=== PATIENT | female | born 1950 | race Caucasian/White ===

== ENCOUNTER 2016-06-19 19:32 | Inpatient (IN) | payer MEDICARE ==
[~2016-06-19] VITALS: Ht 175.3 cm; Wt 67.1 kg
[2016-06-19] MEDS ORDERED: QUET50TA PO (19:50)
[2016-06-19 19:54] LABS: *BILIRUBIN,URIN NEGATIVE (NEGATIVE); *BLOOD, URINE Trace-lysed (NEGATIVE); *CLARITY,URINE CLOUDY (CLEAR); *COLOR,URINE YELLOW (YELLOW); *KETONES,URINE NEGATIVE (NEGATIVE); *PROTEIN,URINE NEGATIVE (NEGATIVE); *UROBILINOGEN,URINE 0.2 E.U./dl (NORMAL); LEUKOCYTE ESTERASE ,URINE 1+ (NEGATIVE); NITRITE, URINE NEGATIVE (NEGATIVE); PH,URINE 6.5 (5.0-8.0); UGLUCOSE NEGATIVE (NEGATIVE)
[2016-06-19] MEDS ORDERED: OLANZAPINE 5 MG TABLET PO ONE (20:00)
[2016-06-19 20:08] LABS: *AMPHETAMINE, URINE NEGATIVE (NEGATIVE); *BARBITURATE, URINE NEGATIVE (NEGATIVE); *CANNABINOID, URINE NEGATIVE (NEGATIVE); *COCCAINE, URINE NEGATIVE (NEGATIVE); *OPIATE, URINE NEGATIVE (NEGATIVE); *PHENCYCLIDINE SCREEN,URINE NEGATIVE (NEGATIVE)
[2016-06-19 20:09] LABS: BASOPHILS % (AUTO) 0.3 % (0.0-2.0); EOSINOPHILS # (AUTO) 0.8 K/uL (0.0-0.7); EOSINOPHILS % (AUTO) 10.3 % (0.0-7.0); HEMATOCRIT 40.4 % (31.2-41.9); HEMOGLOBIN 13.6 g/dL (10.9-14.3); LYMPHOCYTES # (AUTO) 1.4 K/uL (20.0-40.0); MEAN CORPUSCULAR HEMOGLOBIN 30.1 uug (24.7-32.8); MEAN CORPUSCULAR HGB CONC 34 g/dL (32.3-35.6); MEAN CORPUSCULAR VOLUME 89.5 fL (75.5-95.3); MONOCYTES # (AUTO) 0.7 K/uL (2.0-10.0); NEUTROPHILS # (AUTO) 4.5 K/uL (1.8-8.9); NEUTROPHILS % (AUTO) 61.4 % (38.5-71.5); PLATELET COUNT (AUTO) 185 K/uL (179-408); RED BLOOD CELL COUNT(AUTO) 4.52 MIL/uL (3.63-4.92); RED CELL DISTRIBUTION WIDTH 13.1 % (12.3-17.7); WHITE BLOOD COUNT (AUTO) 7.4 K/uL (3.8-11.8)
[2016-06-19] MEDS ORDERED: OLANZAPINE 5 MG TABLET ONE (20:09)
[2016-06-19 20:12] LABS: ALANINE AMINOTRANSFERASE 43 U/L (14-59); ALBUMIN 3.5 g/dL (3.4-5.0); ALKALINE PHOSPHATASE 35 U/L (50-136); ASPARTATE AMINOTRANSFERASE 27 U/L (15-37); BILIRUBIN,DIRECT < 0.1 mg/dL (0.0-0.2); BILIRUBIN,TOTAL 0.2 mg/dL (0.2-1.0); CARBON DIOXIDE 30 mmol/L (21-32); CHLORIDE 110 mmol/L (98-107); CREATININE 0.9 mg/dL (0.6-1.3); GFR 62 mL/min (>60); GLUCOSE 122 mg/dL (74-106); SODIUM SERUM 147 mmol/L (136-145); TOTAL PROTEIN, SERUM 6.7 g/dL (6.4-8.2); UREA NITROGEN, BLOOD 23 mg/dL (7-18)
[2016-06-19 20:15] LABS: ETHANOL < 3 MG/DL (0-0)
[2016-06-19 20:17] LABS: ACETAMINOPHEN < 2.0 ug/mL (10-30)
[2016-06-19 20:20] LABS: BACTERIA,URINE MANY /HPF (NONE SEEN); MUCUS,URINE MANY /LPF (0-FEW); SQUAMOUS EPITHELIAL CELL,UR MODERATE /HPF (NONE SEEN); WBC,URINE 20-50 /HPF (0-3)
[2016-06-19 20:37] LABS: THYROID STIMULATING HORMONE 1.841 mIU/mL (0.358-3.740)
--- NOTE | 2016-06-19 20:49 | NUR ---
Pt. admitted to [facility], under care of Dr. Frazier Belongs List completed
[2016-06-19] MEDS ORDERED: MAG HYDROX/AL HYDROX/SIMETH 30 ML LIQUID UDC PO PRN (21:00)
[2016-06-19] MEDS ORDERED: ACETAMINOPHEN 325 MG TABLET PO PRN (21:00)
[2016-06-19] MEDS ORDERED: MAGNESIUM HYDROXIDE 30 ML LIQUID UDC PO PRN (21:00)
[2016-06-19] MEDS: TEMAZEPAM 7.5 MG CAPSULE PO PRN (21:51)
--- NOTE | 2016-06-19 23:00 | NUR ---
PATIENT RECEIVED VIA GURNEY FROM ER, PATIENT ALERT/ORIENTED X1 TO NAME ONLY. PATIENT CONFUSED, FORGETFUL, DISORGANIZED, AND DISHEVELED, PATIENT UNABLE TO FOLLOW SIMPLE COMMANDS, UNABLE TO ANSWER BASIC QUESTIONS ON HEALTH/ OR LIVING SITUATION. PATIENT AMBULATORY, CONTINENT OF BOWEL AND BLADDER. PATIENT REQUIRES FREQUENT REDIRECTION AND PROMPTING. PATIENT'S SKIN WITH RASH ON LEFT AND RIGHT ARM, UPPER CHEST, UPPER AND LOWER BACK, LEFT AND RIGHT INNER THIGH, PATIENT HAS POSSIBLE BED BUGS/SCABIES RECEIVED 1 APPLICATION OF PERMETHORIN CREAM ON 06/18/16 @ 1650. POOR INSIGHT, POOR JUDGEMENT, AND POOR IMPULSE CONTROL. PATIENT REQUIRES FREQUENT REMINDER OF ISOLATION PRECAUTIONS. PATIENT ORIENTED TO ROOM AND BATHROOM, REQUIRES FREQUENT REDIRECTION DUE TO CONFUSION AND FORGETFUL. PATIENT RECEIVED ADVISEMENT AND PATIENT HANDBOOK.
[2016-06-20 08:01] VITALS: BP 139/68
[2016-06-20] MEDS ORDERED: PERMETHRIN 5% CREAM 60 GM TUBE TP ONE ×2 (11:30→21:00)
--- NOTE | 2016-06-20 12:27 | NUR ---
Initial discharge instructions:Per chart the patient was evicted 3 weeks ago from her prior residence,and is homeless.Per pt,she has no family to contact.Spoke with pt about shelter facility placement,and she denied placement.SW will speak with pt and MD regarding appropriate discharge plans.SW will form a safe and proper discharge.
[2016-06-20] MEDS: LORAZEPAM 0.5 MG TABLET PO PRN ×2 (12:46→18:16)
[2016-06-20 15:13] VITALS: BP 127/80
[2016-06-20 20:00] VITALS: BP 141/81
[2016-06-20] MEDS ORDERED: SULFAMETH/TRIMETH 800/160 MG TABLET PO SCH (21:00)
[2016-06-20] MEDS: SULFAMETH/TRIMETH 800/160 MG TABLET PO SCH (21:14)
[2016-06-20] MEDS: diphenhydrAMINE 25 MG CAP PO PRN (21:14)
--- NOTE | 2016-06-20 22:19 | NUR ---
PATIENT REMAINS WITH A 1:1 SITTER FOR SAFETY, ON ISOLATION PRECAUTIONS DUE TO POSSIBLE BED BUGS/SCABIES. PATIENT ALERT/ORIENTED X1 TO NAME ONLY. PATIENT CONFUSED, DISORGANIZED THOUGHTS. PATIENT COMPLAINT WITH HS MEDICATION, ON ATB THERAPY FOR UTI. PATIENT HAD ELIMITE TREATMENT THIS HS, PATIENT COMPLAINT. WILL REDIRECT AND PROMPT NEEDED. BED IN LOWEST POSITION, BED LOCKED AND BED ALARM ON WHILE IN BED. NO AGGRESSIVE OR COMBATIVE BEHAVIOR NOTED.
[2016-06-21 08:00] VITALS: BP 135/68
[2016-06-21] MEDS: SULFAMETH/TRIMETH 800/160 MG TABLET PO SCH ×2 (08:20→20:16)
[2016-06-21 08:24] LABS: CALCIUM 8.4 mg/dL (8.5-10.1); CREATININE 0.7 mg/dL (0.6-1.3); POTASSIUM 4.1 mmol/L (3.5-5.1)
[2016-06-21 16:00] VITALS: BP 134/72
[2016-06-21] MEDS ORDERED: OLANZAPINE ZYDIS 5 MG TAB.RAPDIS PO SCH (19:00)
[2016-06-21] MEDS: OLANZAPINE ZYDIS 5 MG TAB.RAPDIS PO SCH (20:16)
[2016-06-21 20:19] VITALS: BP 146/86
[2016-06-21] MEDS: TEMAZEPAM 7.5 MG CAPSULE PO PRN (22:30)
[2016-06-22 08:00] VITALS: BP 141/78
[2016-06-22] MEDS: OLANZAPINE ZYDIS 5 MG TAB.RAPDIS PO SCH ×3 (09:07→20:14)
[2016-06-22] MEDS: SULFAMETH/TRIMETH 800/160 MG TABLET PO SCH ×2 (09:07→20:15)
[2016-06-22] MEDS: LORAZEPAM 0.5 MG TABLET PO PRN ×2 (15:11→22:35)
[2016-06-22 16:20] VITALS: BP 142/83
[2016-06-22] MEDS: diphenhydrAMINE 25 MG CAP PO PRN (20:14)
[2016-06-22 20:36] VITALS: BP 138/80
[2016-06-22] MEDS: TEMAZEPAM 7.5 MG CAPSULE PO PRN (21:26)
[2016-06-23 07:30] VITALS: BP 123/76
[2016-06-23] MEDS: OLANZAPINE ZYDIS 5 MG TAB.RAPDIS PO SCH ×3 (08:43→20:52)
[2016-06-23] MEDS: SULFAMETH/TRIMETH 800/160 MG TABLET PO SCH ×2 (08:43→20:51)
[2016-06-23 15:31] VITALS: BP 121/66
[2016-06-23 20:15] VITALS: BP 134/72
--- NOTE | 2016-06-23 22:00 | NUR ---
received to care, sitting in her room. pleasant upon approach. continues to be confused, and disorganized. remains on contact isolation for possible scabies. 1;1 sitter remains at her side, to ensure safety. compliant with medications and staff direction. as of 2199, she appears to be asleep. no distress noted. will continue to monitor closely.
[2016-06-24] MEDS: TEMAZEPAM 7.5 MG CAPSULE PO PRN ×2 (01:09→23:43)
--- NOTE | 2016-06-24 01:09 | NUR ---
pt is now awake. PRN restoril was given, at this time.
--- NOTE | 2016-06-24 01:30 | NUR ---
appears to be asleep. no distress noted.
--- NOTE | 2016-06-24 06:00 | NUR ---
slept 3.75 hours.
[2016-06-24 07:30] VITALS: BP 125/75
[2016-06-24] MEDS: OLANZAPINE ZYDIS 5 MG TAB.RAPDIS PO SCH ×3 (08:28→20:09)
[2016-06-24] MEDS: SULFAMETH/TRIMETH 800/160 MG TABLET PO SCH ×2 (08:28→20:09)
[2016-06-24] MEDS: LORAZEPAM 0.5 MG TABLET PO PRN ×2 (11:50→22:00)
[2016-06-24 15:28] VITALS: BP 125/77
[2016-06-24 20:57] VITALS: BP 123/64
--- NOTE | 2016-06-24 21:58 | NUR ---
PATIENT REMAINS ON ISOLATION PRECAUTIONS DUE TO SCABIES. REMAINS WITH A 1:1 SITTER. PATIENT COMPLAINT WITH HS MEDICATION, PATIENT DENIES SI WILL CONTINUE TO MONITOR. NO AGGRESSIVE OR COMBATIVE BEHAVIOR NOTED WILL CONTINUE TO MONITOR AND REDIRECT. PATIENT REQUIRES FREQUENT REDIRECTION AND PROMPTING. BED IN LOWEST POSITION, BED LOCKED AND BED ALARM ON WHILE IN BED.
[2016-06-25 07:30] VITALS: BP 115/67
[2016-06-25 07:36] LABS: CALCIUM 8.9 mg/dL (8.5-10.1); CREATININE 0.7 mg/dL (0.6-1.3); POTASSIUM 4.1 mmol/L (3.5-5.1)
[2016-06-25 07:39] LABS: BASOPHILS % (AUTO) 0.5 % (0.0-2.0); EOSINOPHILS # (AUTO) 0.1 K/uL (0.0-0.7); EOSINOPHILS % (AUTO) 3.1 % (0.0-7.0); HEMATOCRIT 40.7 % (31.2-41.9); HEMOGLOBIN 13.9 g/dL (10.9-14.3); LYMPHOCYTES # (AUTO) 1.6 K/uL (20.0-40.0); LYMPHOCYTES % (AUTO) 34.6 % (20.5-51.5); MEAN CORPUSCULAR HEMOGLOBIN 30.5 uug (24.7-32.8); MEAN CORPUSCULAR HGB CONC 34 g/dL (32.3-35.6); MEAN CORPUSCULAR VOLUME 89.3 fL (75.5-95.3); MONOCYTES # (AUTO) 0.4 K/uL (2.0-10.0); NEUTROPHILS # (AUTO) 2.6 K/uL (1.8-8.9); NEUTROPHILS % (AUTO) 53.8 % (38.5-71.5); PLATELET COUNT (AUTO) 152 K/uL (179-408); RED BLOOD CELL COUNT(AUTO) 4.56 MIL/uL (3.63-4.92); RED CELL DISTRIBUTION WIDTH 12.9 % (12.3-17.7); WHITE BLOOD COUNT (AUTO) 4.7 K/uL (3.8-11.8)
[2016-06-25] MEDS: OLANZAPINE ZYDIS 5 MG TAB.RAPDIS PO SCH ×3 (08:19→20:32)
[2016-06-25] MEDS: SULFAMETH/TRIMETH 800/160 MG TABLET PO SCH ×2 (08:19→20:32)
[2016-06-25] MEDS: LORAZEPAM 0.5 MG TABLET PO PRN (12:01)
[2016-06-25] MEDS: diphenhydrAMINE 25 MG CAP PO PRN (12:01)
--- NOTE | 2016-06-25 16:35 | NUR ---
PATIENT IS AGGRESSIVE AND COMBATIVE TO THE CARE,REFUSED SKIN SCRAPING FOR SCABIES,WILL ORDER ELIMITE CREAM TO PATIENT.
[2016-06-25 20:42] VITALS: BP 131/77
--- NOTE | 2016-06-25 21:00 | NUR ---
Patient received in chair in room. Remains on isolation for scabies. Pt is confused and disoriented. compliant with PO medications at bedtimes. 1:1 sitter with patient. No aggressive or combative behavior noted. Safety measures maintained.
[2016-06-25] MEDS: TEMAZEPAM 7.5 MG CAPSULE PO PRN (23:58)
--- NOTE | 2016-06-26 00:15 | NUR ---
Pt awake and restless, given restoril prn as ordered. Remains on 1:1 for safety. isolation for scabies. No acute distress noted. Safety measures maintained.
[2016-06-26 07:30] VITALS: BP 118/70
[2016-06-26] MEDS: OLANZAPINE ZYDIS 5 MG TAB.RAPDIS PO SCH ×3 (08:14→21:07)
[2016-06-26] MEDS: SULFAMETH/TRIMETH 800/160 MG TABLET PO SCH (08:14)
--- NOTE | 2016-06-26 11:00 | NUR ---
WEEKLY MEETING PO INTAKE 75-100% ON REGULAR DIET, NO DIET RECOMMENDATION AT THIS TIME LAST BM ON 06/25 SKIN INTACT NOTED 2 LB WT LOSS IN 4 DAYS, NOT SIGNIFICANT WT LOSS, REC REWEIGH PT NO NUTRITIONAL PERTINENT MEDS LABS: 06/25: BUN 20 (H) MONITOR PO INTAKE, WEIGHT, LABS NO NUTRITION DIAGNOSIS AT THIS TIME Addendum: 06/26/16 at [address] Amended: Links added.
[2016-06-26 16:00] VITALS: BP 132/66
[2016-06-26 20:22] VITALS: BP 134/73
[2016-06-26] MEDS ORDERED: PERMETHRIN 5% CREAM 60 GM TUBE TP ONE (21:00)
--- NOTE | 2016-06-26 22:00 | NUR ---
Pt received resting comfortably in bed. Remains on isolation for scabies. 1:1 sitter with patient. remains confused and disoriented. No aggressive or combative behavior noted. Compliant with medications. Elimite treatment applied for scabies treatment as ordered. No acute distress noted. safety measures maintained.
[2016-06-27] MEDS: OLANZAPINE ZYDIS 5 MG TAB.RAPDIS PO SCH ×3 (08:01→20:02)
[2016-06-27 15:12] VITALS: BP 135/64
[2016-06-27 20:00] VITALS: BP 150/76
[2016-06-28 07:30] VITALS: BP 133/63
[2016-06-28 08:04] LABS: BASOPHILS % (AUTO) 0.7 % (0.0-2.0); EOSINOPHILS # (AUTO) 0.1 K/uL (0.0-0.7); EOSINOPHILS % (AUTO) 1.6 % (0.0-7.0); HEMATOCRIT 36.3 % (37-47); HEMOGLOBIN 12.6 G/DL (12.0-16.0); LYMPHOCYTES # (AUTO) 1.6 K/uL (20.0-40.0); LYMPHOCYTES % (AUTO) 32.1 % (20.5-51.5); MEAN CORPUSCULAR HEMOGLOBIN 30.6 UUG (27.0-31.0); MEAN CORPUSCULAR HGB CONC 35 g/dL (32.0-37.0); MEAN CORPUSCULAR VOLUME 88.5 FL (81.0-99.0); MONOCYTES # (AUTO) 0.5 K/uL (2.0-10.0); MONOCYTES % (AUTO) 9.3 % (0.0-11.0); NEUTROPHILS # (AUTO) 2.8 K/uL (1.8-8.9); NEUTROPHILS % (AUTO) 56.3 % (38.5-71.5); PLATELET COUNT (AUTO) 146 K/UL (150-450); RED BLOOD CELL COUNT(AUTO) 4.11 MIL/UL (4.2-5.4); RED CELL DISTRIBUTION WIDTH 12.8 % (11.5-14.5)
[2016-06-28 08:19] LABS: ALBUMIN 3.4 g/dL (3.4-5.0); BILIRUBIN,TOTAL 0.3 mg/dL (0.2-1.0); CALCIUM 8.3 mg/dL (8.5-10.1); CREATININE 0.7 mg/dL (0.6-1.3); PHOSPHOROUS 3.1 mg/dL (2.5-4.9); POTASSIUM 3.7 mmol/L (3.5-5.1); TOTAL PROTEIN, SERUM 6.3 g/dL (6.4-8.2)
[2016-06-28] MEDS: OLANZAPINE ZYDIS 5 MG TAB.RAPDIS PO SCH (08:32)
--- NOTE | 2016-06-28 09:10 | NUR ---
DC Note: Patient will be discharged today to [facility] [[address] [place] [address]; ] via ambulance at 12:00 pm. Spoke with Ramón at the facility who stated he would accept the patient today. Spoke with patient's sister, Chelsea Mendoza [phone] who is aware and agreeable with discharge plans. Patient is aware and agreeable with discharge plans. Patient will follow-up with (Work Order Detailer) and (Psychiatrist) at the facility. Patient was provided with a brief substance abuse intervention and referred to [facility] , [facility] , and [facility] .
--- NOTE | 2016-06-28 12:30 | NUR ---
1030 Called facility [facility] red[facility] patient will be discharged to their facility, spoke to Tila Franco, AUGIE report given regarding patient mental and medical condition, stable no SI/HI. no delusions/ no avhallucinations . Also, informed patient DX., medications to continue at the facility. 1220 Patient picked up by ambulance and discharged to facility mentioned above.
== END 2016-06-28 12:20 | DRG 885 ==
LOC: ER 19:32 → GPS 20:45
PROVIDERS: ADMIT Psychiatry & Neurology Psychiatry; ATTEND Family Medicine
DX: F29 Unspecified psychosis not due to a substance or known physiological condition (principal); E87.0 Hyperosmolality and hypernatremia; N39.0 Urinary tract infection, site not specified; Z73.6 Limitation of activities due to disability; E86.0 Dehydration; B86 Scabies; D69.6 Thrombocytopenia, unspecified; E78.5 Hyperlipidemia, unspecified; Z79.899 Other long term (current) drug therapy; I51.7 Cardiomegaly; R73.9 Hyperglycemia, unspecified
CPT/HCPCS: 36415; 70450; 71010; 80307; 83735; 84100; 84443; 85025; 93005; A4663; G0480-TC; G6040-TC; Q0163

== ENCOUNTER 2017-08-14 15:15 | Inpatient (IN) | payer MEDICARE, MEDICAID ==
[~2017-08-14] VITALS: Ht 165.1 cm; Wt 65.9 kg
[2017-08-14 10:15] VITALS: BP 116/88
--- NOTE | 2017-08-14 15:20 | NUR ---
pt restless and confused. comfort measure provided.
--- NOTE | 2017-08-14 15:26 | NUR ---
yasmine at bedside for one to one watch.
[2017-08-14] MEDS ORDERED: POLY17PO4 PO (15:38)
[2017-08-14] MEDS ORDERED: CHOL100045 PO (15:38)
[2017-08-14] MEDS ORDERED: BISA5TAB10 PO (15:38)
[2017-08-14] MEDS ORDERED: SENN-18 PO (15:38)
[2017-08-14] MEDS ORDERED: ACET-2154 PO (15:38)
[2017-08-14] MEDS ORDERED: DIVA250T4 PO (15:38)
[2017-08-14 15:48] LABS: BASOPHILS % (AUTO) 0.6 % (0.0-2.0); EOSINOPHILS % (AUTO) 0.4 % (0.0-7.0); HEMATOCRIT 40.8 % (31.2-41.9); HEMOGLOBIN 13.6 g/dL (10.9-14.3); LYMPHOCYTES # (AUTO) 1.9 K/uL (20.0-40.0); LYMPHOCYTES % (AUTO) 31.9 % (20.5-51.5); MEAN CORPUSCULAR HEMOGLOBIN 29.3 uug (24.7-32.8); MEAN CORPUSCULAR HGB CONC 33 g/dL (32.3-35.6); MONOCYTES # (AUTO) 0.6 K/uL (2.0-10.0); NEUTROPHILS # (AUTO) 3.3 K/uL (1.8-8.9); NEUTROPHILS % (AUTO) 57.1 % (38.5-71.5); PLATELET COUNT (AUTO) 128 K/uL (179-408); RED BLOOD CELL COUNT(AUTO) 4.64 MIL/uL (3.63-4.92); WHITE BLOOD COUNT (AUTO) 5.8 K/uL (3.8-11.8)
[2017-08-14 15:56] LABS: CARBON DIOXIDE 29 mmol/L (21-32); CHLORIDE 106 mmol/L (98-107); CREATININE 0.9 mg/dL (0.6-1.3); GLUCOSE 104 mg/dL (74-106); UREA NITROGEN, BLOOD 22 mg/dL (7-18)
[2017-08-14 16:00] LABS: *BILIRUBIN,URIN NEGATIVE (NEGATIVE); *BLOOD, URINE NEGATIVE (NEGATIVE); *CLARITY,URINE CLOUDY (CLEAR); *COLOR,URINE YELLOW (YELLOW); *KETONES,URINE TRACE (NEGATIVE); *PROTEIN,URINE 1+ (NEGATIVE); *UROBILINOGEN,URINE 0.2 E.U./dl (NORMAL); LEUKOCYTE ESTERASE ,URINE TRACE (NEGATIVE); NITRITE, URINE POSITIVE (NEGATIVE); PH,URINE 7.5 (5.0-8.0); UGLUCOSE NEGATIVE (NEGATIVE)
[2017-08-14] MEDS ORDERED: OLANZAPINE 10 MG VIAL IM ONE ×2 (16:00)
[2017-08-14 16:01] LABS: ALANINE AMINOTRANSFERASE 40 U/L (14-59); ALKALINE PHOSPHATASE 45 U/L (50-136); ASPARTATE AMINOTRANSFERASE 24 U/L (15-37); BILIRUBIN,DIRECT 0.1 mg/dL (0.0-0.2); BILIRUBIN,TOTAL 0.3 mg/dL (0.2-1.0); TOTAL PROTEIN, SERUM 7.2 g/dL (6.4-8.2)
[2017-08-14 16:03] LABS: ACETAMINOPHEN < 2.0 ug/mL (10-30)
[2017-08-14 16:15] LABS: *AMPHETAMINE, URINE NEGATIVE (NEGATIVE); *BARBITURATE, URINE NEGATIVE (NEGATIVE); *CANNABINOID, URINE NEGATIVE (NEGATIVE); *COCCAINE, URINE NEGATIVE (NEGATIVE); *OPIATE, URINE NEGATIVE (NEGATIVE); *PHENCYCLIDINE SCREEN,URINE NEGATIVE (NEGATIVE)
[2017-08-14 16:17] LABS: ETHANOL < 3 MG/DL (0-0)
[2017-08-14 16:20] LABS: BACTERIA,URINE MANY /HPF (NONE SEEN); SQUAMOUS EPITHELIAL CELL,UR MODERATE /HPF (NONE SEEN); TRIPLE PHOSPHATE CRYSTAL,UR FEW /HPF (NONE SEEN)
--- NOTE | 2017-08-14 17:00 | NUR ---
pt resting, arousable.
[2017-08-14] MEDS ORDERED: NITROFURANTOIN/NITROFURAN MAC 100 MG CAPSULE PO ONE (18:15)
[2017-08-14] MEDS ORDERED: CEFTRIAXONE 1 G in IV DEXTROSE 5% 50 ML IV ONE (18:15)
[2017-08-14] MEDS ORDERED: CEFTRIAXONE 1 G VIAL ONE (19:03)
--- NOTE | 2017-08-14 19:24 | NUR ---
hands off report given to valerie castro.
[2017-08-14] MEDS ORDERED: HALOPERIDOL LACTATE 5 MG/1 ML VIAL IM ONE (19:30)
[2017-08-14] MEDS ORDERED: diphenhydrAMINE 50 MG/1 ML VIAL IM ONE (19:30)
[2017-08-14] MEDS ORDERED: LORAZEPAM 2 MG/1 ML VIAL IM ONE (19:30)
--- NOTE | 2017-08-14 19:31 | NUR ---
Assumed care of patient. patient agitated , sitter at bedside. Will continue to monitor patient.
[2017-08-14] MEDS ORDERED: HALOPERIDOL LACTATE 5 MG/1 ML VIAL ONE (19:37)
[2017-08-14] MEDS ORDERED: diphenhydrAMINE 50 MG/1 ML VIAL ONE (19:37)
[2017-08-14] MEDS ORDERED: LORAZEPAM 2 MG/1 ML VIAL ONE (19:37)
--- NOTE | 2017-08-14 20:50 | NUR ---
Patient remains in bed, no acute distress noted. Sitter at bedside
--- NOTE | 2017-08-14 21:16 | NUR ---
Patient taken to CT at this time. Nestor accompanied patient to CT at this time
[2017-08-14] MEDS ORDERED: ONDANSETRON 4 MG/2 ML VIAL IV PRN (21:45)
[2017-08-14] MEDS ORDERED: MORPHINE SULFATE 2 MG/1 ML DISP.SYRIN IV PRN (21:45)
--- NOTE | 2017-08-14 21:46 | NUR ---
Report given to Alexa GHOSH
--- NOTE | 2017-08-14 22:00 | NUR ---
ADMITTED A 66 YEARS OLD FEMALE WITH DIAGNOSIS OF UTI. PATIENT ALERT TO SELF ONLY, MAINLY CONFUSED AND DISORIENTED. IN NO ACUTE DISTRESS. NSR WITH EPISODE OF SINUS CHELY ON TELE BETWEEN 55-65/MIN. IV SITE ON RFA INTACT AND PATENT. NO BEHAVIORAL ISSUES NOTED AT THIS TIME. ROUTINE ADMISSION CARE DONE. PLAN OF CARE INITIATED. SAFETY MEASURE INITIATED. 1;1 SITTER ON BEDSIDE.
[2017-08-15 05:30] VITALS: BP 103/59
--- NOTE | 2017-08-15 05:56 | NUR ---
PATIENT ALERT TO SELF ONLY, MAINLY CONFUSED AND DISORIENTED. IN NO ACUTE DISTRESS. NSR ON TELE BETWEEN 63/MIN. IV SITE ON RFA INTACT AND PATENT. NO BEHAVIORAL ISSUES NOTED. SLEPT WELL. SAFETY MEASURE MAINTAINED. 1:1 SITTER ON BEDSIDE.
[2017-08-15] MEDS: PANTOPRAZOLE SODIUM 40 MG TABLET.DR PO SCH (06:11)
[2017-08-15 06:29] LABS: THYROID STIMULATING HORMONE 2.646 mIU/mL (0.358-3.740)
[2017-08-15 06:37] LABS: BASOPHILS % (AUTO) 0.4 % (0.0-2.0); HEMATOCRIT 36.9 % (31.2-41.9); HEMOGLOBIN 12.5 g/dL (10.9-14.3); LYMPHOCYTES # (AUTO) 1.4 K/uL (20.0-40.0); LYMPHOCYTES % (AUTO) 38.3 % (20.5-51.5); MEAN CORPUSCULAR HEMOGLOBIN 29.4 uug (24.7-32.8); MEAN CORPUSCULAR HGB CONC 34 g/dL (32.3-35.6); MEAN CORPUSCULAR VOLUME 86.5 fL (75.5-95.3); MONOCYTES # (AUTO) 0.4 K/uL (2.0-10.0); MONOCYTES % (AUTO) 11.2 % (0.0-11.0); NEUTROPHILS # (AUTO) 1.8 K/uL (1.8-8.9); NEUTROPHILS % (AUTO) 49.1 % (38.5-71.5); RED BLOOD CELL COUNT(AUTO) 4.26 MIL/uL (3.63-4.92)
[2017-08-15 06:39] LABS: BILIRUBIN,TOTAL 0.3 mg/dL (0.2-1.0); CREATININE 0.6 mg/dL (0.6-1.3); MAGNESIUM 2.1 mg/dL (1.8-2.4); PHOSPHOROUS 4.3 mg/dL (2.5-4.9); POTASSIUM 3.7 mmol/L (3.5-5.1); TOTAL PROTEIN, SERUM 6.3 g/dL (6.4-8.2)
[2017-08-15 06:41] LABS: PLATELET COUNT (AUTO) 96 K/uL (179-408); WHITE BLOOD COUNT (AUTO) 3.8 K/uL (3.8-11.8)
[2017-08-15 07:38] VITALS: BP 150/62
--- NOTE | 2017-08-15 07:39 | NUR ---
patient resting comfortably in bed at this time. no s/s of distress. stable. vital signs taken, elevated bp. 1:1 sitter at bedside for safety. sinus rhythm on tele. awaiting valproic acid lab. bed in locked/low position, side rails up x2, bed alarm on, call light within reach. will provide reorientation throughout shift.
[2017-08-15 08:41] LABS: BASOPHILS % (MANUAL) 1 % (0-2); EOSINOPHILS % (MANUAL) 1 % (0-8); LYMPHOCYTES % (MANUAL) 41 % (20-40); MONOCYTES % (MANUAL) 10 % (2-10); NEUTROPHILS % (MANUAL) 47 % (42-75)
[2017-08-15] MEDS ORDERED: MORPHINE SULFATE 4 MG/1 ML DISP.SYRIN IV PRN (08:45)
[2017-08-15 12:00] VITALS: BP 109/55
[2017-08-15 16:00] VITALS: BP 111/64
--- NOTE | 2017-08-15 17:35 | NUR ---
patient is awake, continues to be extremely confused. she is only alert to her self. verbalizes statements that make no sense at all. No combativeness noted. 1:1 sitter at bedside and is highly suggested due to patient's extreme confusion. 1:1 sitter for patient safety. patient no longer combative, agitated.
--- NOTE | 2017-08-15 19:45 | NUR ---
Received patient trying to get out of bed. No acute distress noted. Extremely confused. A.O x 0. 1:1 at bedside. We were able to orient the patient back to bed. Skin intact. IV site on the right FA. Patient and intact. Vital signs stable. No temperature. Safety initiated. Call light within reach. Bed is in low and locked position. Will closely monitor.
[2017-08-15 20:00] VITALS: BP 106/59
[2017-08-15] MEDS: CEFTRIAXONE 1 G in IV DEXTROSE 5% 50 ML IV SCH (20:00)
[2017-08-15] MEDS: ATORVASTATIN 20 MG TABLET PO SCH (20:01)
[2017-08-15] MEDS: DOCUSATE SODIUM 250 MG CAPSULE PO SCH (20:01)
[2017-08-15] MEDS: ACETAMINOPHEN 325 MG TABLET PO PRN (20:01)
[2017-08-16 05:00] VITALS: BP 125/60
--- NOTE | 2017-08-16 05:31 | NUR ---
Patient slept t/o shift. No acute distress noted. A/O x 0. 1:1 at bedside. We were able to orient the patient back to bed. Nourishment was offered and patient ate it 100%. Skin intact. IV site on the right FA. Patient and intact. Urinating ok. Vital signs stable. No temperature. Denies pain. Safety and comfort measures maintained t/o shift. Call light within reach. Bed in low and locked position. Room is kept clutter free. All meds given as ordered. All needs met.
[2017-08-16] MEDS: PANTOPRAZOLE SODIUM 40 MG TABLET.DR PO SCH (06:18)
--- NOTE | 2017-08-16 07:26 | NUR ---
patient resting comfortably in bed, 1:1 sitter at bedside. contact isolation for mrsa nares. stable condition, no s/s of distress at this time. will continue to monitor. patient able to ambulate, and is continent. Addendum: 08/16/17 at 0739 by CHIQUIS HERNANDEZ RN *incorrect patient
--- NOTE | 2017-08-16 07:39 | NUR ---
patient continues to be extremely confused per associate artistic director nurse. 1:1 sitter at bedside for safety. reorientation will be provided throughout shift. stable condition, no s/s of distress. will monitor patient throughout shift.
[2017-08-16 11:25] VITALS: BP 130/73
[2017-08-16] MEDS: LORAZEPAM 2 MG/1 ML VIAL IV PRN (13:47)
--- NOTE | 2017-08-16 13:50 | NUR ---
ativan 0.5 mg IV administered: patient restless and agitated.
[2017-08-16 16:03] VITALS: BP 108/55
--- NOTE | 2017-08-16 18:34 | NUR ---
patient continues to be very confused. only alert to self. appears to be restless, with very little sleep during the last night time nanny and today's day shift. 1:1 sitter at bedside for safety. patient made several attempts to get out of bed. safety measures provided.
[2017-08-16 20:00] VITALS: BP 133/56
--- NOTE | 2017-08-16 20:00 | NUR ---
Received patient laying comfortably in bed. No acute distress noted. Extremely confused. A/O x 0. 1:1 Sitter at bedside. Skin intact. IV site on the right FA. Patient and intact. Vital signs stable. No temperature. Safety initiated. Call light within reach. Bed is in low and locked position. Will closely monitor.
[2017-08-16] MEDS: ATORVASTATIN 20 MG TABLET PO SCH (20:03)
[2017-08-16] MEDS: CEFTRIAXONE 1 G in IV DEXTROSE 5% 50 ML IV SCH (20:03)
[2017-08-16] MEDS: DOCUSATE SODIUM 250 MG CAPSULE PO SCH (20:04)
[2017-08-17] MEDS: ACETAMINOPHEN 325 MG TABLET PO PRN ×2 (00:29→20:22)
--- NOTE | 2017-08-17 05:09 | NUR ---
Patient slept t/o shift. No acute distress noted. Had 1 episode of patient trying to get out of bed. We were able to orient the patient back to bed. A/O x 0. 1:1 at bedside. Nourishment was offered and patient ate it 100%. Skin intact. IV site on the right FA. Patient and intact. Urinating ok. Turn and repositioned Q2H. Vital signs stable. No temperature. Denies pain. Safety and comfort measures maintained t/o shift. Call light within reach. Bed in low and locked position. Room is kept clutter free. Patient took all meds whole with no reactions. All needs met.
[2017-08-17] MEDS: PANTOPRAZOLE SODIUM 40 MG TABLET.DR PO SCH (06:24)
[2017-08-17 06:25] VITALS: BP 126/65
[2017-08-17 06:27] LABS: BASOPHILS % (AUTO) 0.6 % (0.0-2.0); EOSINOPHILS % (AUTO) 0.9 % (0.0-7.0); HEMATOCRIT 39.3 % (31.2-41.9); HEMOGLOBIN 13.4 g/dL (10.9-14.3); LYMPHOCYTES # (AUTO) 1.7 K/uL (20.0-40.0); LYMPHOCYTES % (AUTO) 40.2 % (20.5-51.5); MEAN CORPUSCULAR HEMOGLOBIN 29.5 uug (24.7-32.8); MEAN CORPUSCULAR HGB CONC 34 g/dL (32.3-35.6); MEAN CORPUSCULAR VOLUME 86.8 fL (75.5-95.3); MONOCYTES # (AUTO) 0.4 K/uL (2.0-10.0); NEUTROPHILS # (AUTO) 2.1 K/uL (1.8-8.9); NEUTROPHILS % (AUTO) 48.3 % (38.5-71.5); PLATELET COUNT (AUTO) 106 K/uL (179-408); RED BLOOD CELL COUNT(AUTO) 4.53 MIL/uL (3.63-4.92); WHITE BLOOD COUNT (AUTO) 4.3 K/uL (3.8-11.8)
[2017-08-17 06:49] LABS: CREATININE 0.7 mg/dL (0.6-1.3); MAGNESIUM 2.1 mg/dL (1.8-2.4); POTASSIUM 4.1 mmol/L (3.5-5.1)
[2017-08-17] MEDS: LORAZEPAM 2 MG/1 ML VIAL IV PRN ×2 (09:54→21:04)
[2017-08-17 11:43] VITALS: BP 119/68
[2017-08-17] MEDS: MIRALAX 17 GM POWD.PACK PO SCH (12:07)
[2017-08-17] MEDS: DIVALPROEX 250 MG TABLET.DR PO SCH ×2 (12:07→16:19)
[2017-08-17] MEDS: ASPIRIN 81 MG TAB.CHEW PO SCH (14:57)
[2017-08-17 15:09] VITALS: BP 142/82
[2017-08-17] MEDS: BISACODYL 5 MG TABLET.DR PO SCH (16:19)
[2017-08-17 19:00] VITALS: BP 122/61
--- NOTE | 2017-08-17 20:00 | NUR ---
Received patient laying comfortably in bed. No acute distress noted. Extremely confused. Trying to get out of bed. A/O x 0. 2:1 Sitter at bedside. Noted left gamboa bruising. IV site on the right FA. Patient and intact. Vital signs stable. No temperature. Safety initiated. Call light within reach. Bed is in low and locked position. Will closely monitor
[2017-08-17] MEDS: CEFTRIAXONE 1 G in IV DEXTROSE 5% 50 ML IV SCH (20:22)
[2017-08-17] MEDS: DOCUSATE SODIUM 250 MG CAPSULE PO SCH (20:22)
[2017-08-17] MEDS: ATORVASTATIN 20 MG TABLET PO SCH (20:35)
[2017-08-17] MEDS ORDERED: SENNOSIDES 1 TABLET PO SCH (21:00)
[2017-08-18 04:00] VITALS: BP 128/77
--- NOTE | 2017-08-18 05:20 | NUR ---
No changes t/o shift. No acute distress. Remains A/O x 0. Patient had an episode of trying to get out of bed. However, we were able to re-orient her back to bed. Vitals signs stable. Good urine output. Safety and comfort measures maintained t/o shift. All meds given as ordered. All needs met.
[2017-08-18] MEDS: PANTOPRAZOLE SODIUM 40 MG TABLET.DR PO SCH (06:43)
[2017-08-18] MEDS: LORAZEPAM 2 MG/1 ML VIAL IV PRN ×2 (06:44→12:44)
[2017-08-18] MEDS: BISACODYL 5 MG TABLET.DR PO SCH ×2 (08:41→16:13)
[2017-08-18] MEDS: ASPIRIN 81 MG TAB.CHEW PO SCH (08:42)
[2017-08-18] MEDS: MIRALAX 17 GM POWD.PACK PO SCH (08:42)
[2017-08-18] MEDS: DIVALPROEX 250 MG TABLET.DR PO SCH ×3 (08:42→16:13)
[2017-08-18] MEDS ORDERED: CHOLECALCIFEROL 1,000 UNIT TABLET PO SCH (09:00)
[2017-08-18 11:15] VITALS: BP 140/78
[2017-08-18] MEDS ORDERED: SULFAMETH/TRIMETH 800/160 MG TABLET PO SCH (13:30)
[2017-08-18] MEDS ORDERED: DOCU250C14 PO (14:41)
[2017-08-18] MEDS ORDERED: PANT40TA2 PO (14:41)
[2017-08-18] MEDS ORDERED: MULT1TAB73 PO (14:41)
[2017-08-18] MEDS ORDERED: SULF1TAB3 PO (14:41)
[2017-08-18] MEDS ORDERED: ASPI81TA31 PO (14:41)
[2017-08-18] MEDS ORDERED: QUET25TA PO ×2 (14:41)
[2017-08-18] MEDS ORDERED: SENN-167 PO (14:41)
[2017-08-18] MEDS ORDERED: ATOR20TA PO (14:41)
[2017-08-18] MEDS ORDERED: ACET325T53 PO (14:41)
[2017-08-18 15:17] VITALS: BP_SYST 108; BP_SYST 158; BP_DIAS 64; BP_DIAS 85
--- NOTE | 2017-08-18 17:57 | NUR ---
D/C ORDERS RECEIVED NOTED AND CARRIED OUT,D/C INSTRUCTION AND RN REPORT GIVEN TO THE SKILLED NURSING PT LEFT THE FACILITY VIA AMBULANCES IN STABLE CONDITION
== END 2017-08-18 18:05 | DRG 871 ==
LOC: ER 15:17 → MED 21:33 → TELE 22:36 → MED 08-15 11:00
PROVIDERS: ADMIT Internal Medicine; ATTEND Internal Medicine
DX: A41.59 Other Gram-negative sepsis (principal); G92 Toxic encephalopathy; N17.0 Acute kidney failure with tubular necrosis; N39.0 Urinary tract infection, site not specified; F03.91 Unspecified dementia, unspecified severity, with behavioral disturbance; D68.59 Other primary thrombophilia; Z91.83 Wandering in diseases classified elsewhere; E78.5 Hyperlipidemia, unspecified; D69.6 Thrombocytopenia, unspecified; E86.0 Dehydration; I25.2 Old myocardial infarction; I25.10 Atherosclerotic heart disease of native coronary artery without angina pectoris; Z91.81 History of falling; R26.9 Unspecified abnormalities of gait and mobility; Z91.19 Patient's noncompliance with other medical treatment and regimen; Z87.440 Personal history of urinary (tract) infections
CPT/HCPCS: 36415; 70450; 71045; 80164; 80307; 83550; 83735; 84100; 84443; 85025; 87077; 87086; 93005; 97116; 97530; A4663; G0480; G0480-TC; J0696; J1200; J1630; J2060; J2358; J3490; J7030; J7040; J7060